=== PATIENT | female | born 1955 | race Hispanic/Latino ===

== ENCOUNTER 2023-02-16 12:19 | Emergency (ER) | payer MEDICARE ==
[2023-02-16 14:26] LABS: Thyroid Stimulating Hormone 3.2126 uIU/mL (0.35-4.94)
[2023-02-16 23:48] LABS: Free T4 (Free Thyroxine) 0.77 ng/dL (0.70-1.48)
== END 2023-02-16 14:00 | disposition home or self-care (01) ==
LOC: MADERS 12:19
DX: Z76.0 Encounter for issue of repeat prescription (principal)
CPT/HCPCS: 36415; 36416; 84439; 84443; 84481; 99282

== ENCOUNTER 2024-05-26 12:18 | Outpatient (CLI) | payer MEDICARE, MEDICAID | END 2024-05-26 12:19 | disposition home or self-care (01) | LOC: MADRAD 12:18 | PROVIDERS: ATTEND Nurse Practitioner Family | DX: M25.561 Pain in right knee (principal); M17.11 Unilateral primary osteoarthritis, right knee ==